=== PATIENT | female | born 1955 ===

== ENCOUNTER 2017-11-19 08:53 | Day surgery (SDC) | payer OTHER ==
[2017-03-03 02:35] VITALS: BMI 30.9
[2017-11-19] MEDS ORDERED: Lactated Ringer's 500 ML IV ONE (12:40)
[2017-11-19] MEDS: Lactated Ringer's 500 ML IV ONE ×2 (12:40→12:41)
[2017-11-19] MEDS ORDERED: Propofol 10 mg/ml Inj (20 ML) ONE ×4 (12:50→14:10)
[2017-11-19] MEDS ORDERED: Midazolam 2 MG/2 ML VIAL ONE (12:50)
[2017-11-19] MEDS ORDERED: Labetalol 25mg/5ml Syringe ONE (13:08)
[2017-11-19] MEDS ORDERED: Esmolol 100 mg/10ml Inj IV ONE (13:20)
[2017-11-19] MEDS ORDERED: Metoprolol 1 mg/ml Inj ONE (13:20)
[2017-11-19] MEDS ORDERED: Phenylephrine 10 mg/ml Inj ONE (13:42)
[2017-11-19] MEDS ORDERED: Lactated Ringer's 1,000 ML IV ONE (14:30)
[2017-11-19 15:12] VITALS: TEMP 98; O2SAT 99
[2017-11-19 15:23] VITALS: BP 140/65; PULSE 90; RESP 20
== END 2017-11-19 15:20 | disposition home or self-care (01) ==
LOC: C.ENDO 08:53
PROVIDERS: ATTEND Internal Medicine Gastroenterology
DX: R19.7 Diarrhea, unspecified (principal); K21.0 Gastro-esophageal reflux disease with esophagitis; Z12.11 Encounter for screening for malignant neoplasm of colon; D12.7 Benign neoplasm of rectosigmoid junction; K57.30 Diverticulosis of large intestine without perforation or abscess without bleeding; K64.8 Other hemorrhoids; K29.70 Gastritis, unspecified, without bleeding; K44.9 Diaphragmatic hernia without obstruction or gangrene
CPT/HCPCS: 43239; 45388; 82948; 88305; J2001; J2250; J2370; J2704; J7120